=== PATIENT | male | born 1960 | race African-American/Black ===

== ENCOUNTER 2018-01-15 06:53 | Emergency (ER) | payer OTHER ==
[~2018-01-15] VITALS: Ht 188 cm; Wt 106.6 kg
[2018-01-15] MEDS ORDERED: ASPIRIN81 MG ORAL (06:59)
[2018-01-15] MEDS ORDERED: OMEPRAZOLE10 M1 ORAL (06:59)
[2018-01-15] MEDS ORDERED: METFORMIN HCL500 M1 ORAL (06:59)
[2018-01-15] MEDS ORDERED: AMBIEN10 M1 ORAL (06:59)
[2018-01-15] MEDS ORDERED: Ketorolac 30mg Inj IV ONE (07:00)
[2018-01-15] MEDS ORDERED: Morphine Sulfate 4mg/ml Inj IVP ONE (07:00)
--- NOTE | 2018-01-15 07:12 | Emergency Room Report ---
History of Present Illness General Chief Complaint: Lower Extremity Injury Source: Patient, EMS Present Illness HPI The patient is brought in by EMS after twisting his ankle trying to catch a bus this morning. He might have heard a crack. The pain is severe at this time radiating somewhat to his lower leg. Pain is constant and worse when the foot is dependent. He denies any numbness. He landed on his left side. He twisted his left wrist but states the pain is minimal. The pain in the ankle is 10/10, constant and aching with some sharpness. There is swelling laterally. The patient has a history of adult-onset diabetes however he stopped taking medication recently because his A1c was normal. The patient also has a history of acid reflux. No fevers, chills, chest pain, palpitations, nausea, vomiting, diarrhea, dysuria , abdominal pain, shortness of breath, depression, visual changes, headache. Coincidentally, he is scheduled to see his tele rn at the [place] soon. Allergies: Coded Allergies: No Known Allergies (Unverified , 01/15/18) Patient History Past Medical History: see triage record Social History: Reports: smoking Social History Narrative working for [employer] Reviewed Nursing Documentation: PMH: Agreed; PSxH: Agreed Nursing Documentation-PMH Hx Diabetes: Yes Hx Gastrointestinal Problems: Yes - acid reflux Review of Systems All Other Systems: negative except mentioned in HPI Physical Exam Vital Signs Date Time Temp Pulse Resp B/P (MAP) Pulse Ox O2 Delivery O2 Flow Rate FiO2 01/15/18 06:56 99.0 79 15 139/86 100 Room Air 99.0 Sp02 EP Interpretation: reviewed, normal General Appearance: well appearing, no apparent distress Head: normocephalic, atraumatic Eyes: bilateral eye normal inspection, bilateral eye PERRL ENT: hearing grossly normal, normal voice, moist mucus membranes Neck: full range of motion, supple Respiratory: lungs clear, no respiratory distress, speaking full sentences Cardiovascular #1: regular rate, rhythm Cardiovascular #2: 2+ dorsalis pedis (R) Gastrointestinal: normal inspection Musculoskeletal: back normal, digits/nails normal, no calf tenderness, swelling - and tenderness R ankle - more laterally. Laxity of lateral ligament. Medial maleolus and 5th MT not tender, other - knee without tenderness. L wrist minimal tenderness, ROM full Neurologic: alert, oriented x3, motor strength/tone normal, sensory intact, normal gait Psychiatric: mood/affect normal Skin: no rash Medical Decision Making Diagnostic Impression: Primary Impression: High ankle sprain of right lower extremity Qualified Codes: S93.431A - Sprain of tibiofibular ligament of right ankle, initial encounter ER Course Patient presents with right ankle pain. Differential includes fracture, sprain , contusion. Exam is consistent with fracture or high grade sprain. Evaluation will be with Accu-Chek, x-rays. The patient will need to be splinted. The patient will be treated for pain also. He will receive Toradol, morphine and Zofran. Xray with old injury, no acute fx. STS. Accucheck 141. Pain is much less and patient sleeping. Splint applied with excellent position. Neurovasc checked by me which is normal. Patient stable for outpatient observation and treatment. Other X-Ray Diagnostic Results Other X-Ray Diagnostic Results : X-Ray ordered: R ankle # of Views/Limited Vs Complete: 3 View Indication: Pain EP Interpretation: Yes Interpretation: no dislocation, no fractures - old, other - STS Last Vital Signs Date Time Temp Pulse Resp B/P (MAP) Pulse Ox O2 Delivery O2 Flow Rate FiO2 01/15/18 09:54 98.9 80 16 128/68 100 Room Air 99.0 Status: improved Disposition: HOME, SELF-CARE Condition: Improved Scripts Ibuprofen* (MOTRIN*) 600 Mg Tablet 600 MG ORAL Q6H PRN for For Pain, #16 TAB Prov: Souleymane Tam M.D. 01/15/18 Famotidine (PEPCID) 20 Mg Tablet 20 MG ORAL DAILY, #20 TAB 0 Refills Prov: Souleymane Tam M.D. 01/15/18 Acetaminophen (Tylenol) 325 Mg Tablet 650 MG ORAL Q6H PRN for Prn Pain/Headache/Temp > 101, #20 TAB 0 Refills Prov: Souleymane Tam M.D. 01/15/18 Tramadol Hcl* (ULTRAM*) 50 Mg Tablet 50 MG ORAL Q6H PRN for For Pain, #16 TAB 0 Refills Prov: Souleymane Tam M.D. 01/15/18 Souleymane Tam M.D. Jan 15, 2018 07:11
[2018-01-15] MEDS ORDERED: IBUPROFEN600 MG ORAL (08:11)
[2018-01-15] MEDS ORDERED: TYLENOL325 MG ORAL (08:11)
[2018-01-15] MEDS ORDERED: PEPCID20 MG ORAL (08:11)
[2018-01-15] MEDS ORDERED: TRAMADOL HCL50 MG ORAL (08:11)
[2018-01-15 09:54] VITALS: BP 128/68
--- NOTE | 2018-01-15 10:50 | Diagnostic Imaging Report ---
Indication: Right ankle pain, trauma Technique: 3 views of the right ankle Comparison: none Findings: There is a small calcaneal spur. No acute fractures. No dislocations. Soft tissue swelling overlies lateral malleolus Impression: Evidence of lateral soft tissue injury No acute bony trauma
== END 2018-01-15 09:58 | disposition home or self-care (01) ==
LOC: EDBD 06:53 → EMR 07:27
DX: S93.401A Sprain of unspecified ligament of right ankle, initial encounter (principal); X50.1XXA Overexertion from prolonged static or awkward postures, initial encounter; Y92.89 Other specified places as the place of occurrence of the external cause; K21.9 Gastro-esophageal reflux disease without esophagitis; E11.9 Type 2 diabetes mellitus without complications; M77.31 Calcaneal spur, right foot
CPT/HCPCS: 73610; 82962; 96374; 96375; 99284; J1885; J2270; J2405

== ENCOUNTER 2018-06-10 12:10 | Emergency (ER) | payer OTHER ==
[~2018-06-10] VITALS: Ht 190.5 cm; Wt 97.5 kg
[~2018-06-10 12:10] MED LIST: AMBIEN10 M1 ORAL; ASPIRIN81 MG ORAL; IBUPROFEN600 MG ORAL; METFORMIN HCL500 M1 ORAL; OMEPRAZOLE10 M1 ORAL; PEPCID20 MG ORAL; TRAMADOL HCL50 MG ORAL; TYLENOL325 MG ORAL
[2018-06-10 12:31] VITALS: BP 148/81
[2018-06-10] MEDS ORDERED: Norco 5mg/325mg tab ORAL ONE (13:15)
--- NOTE | 2018-06-10 14:23 | Emergency Room Report ---
History of Present Illness General Chief Complaint: Pain Source: Patient Present Illness HPI 57-year-old male presents emergency department complaining of 10 out of 10 in severity progressive pain to the left side of his jaw with swelling 2 days. Patient denies trauma or fall he denies fevers or chills. Patient reports tenderness to the inside of his mouth. Patient denies neck pain or stiffness. Patient reports pain is exacerbated with opening his mouth really wide. Denies fluctuation in swelling with meals. Denies tooth pain. denies swollen tender lymph nodes. pt. reports hx of lymphoma, denies night sweats or significant changes in weight. Allergies: Coded Allergies: No Known Allergies (Unverified , 01/15/18) Patient History Past Medical History: see triage record Past Surgical History: none Pertinent Family History: none Nursing Documentation-PMH Hx Diabetes: Yes Hx Cancer: Yes - Lymphoma 2002 Hx Gastrointestinal Problems: Yes - acid reflux Review of Systems All Other Systems: negative except mentioned in HPI Physical Exam Vital Signs Date Time Temp Pulse Resp B/P (MAP) Pulse Ox O2 Delivery O2 Flow Rate FiO2 06/10/18 12:18 98.5 79 20 148/81 96 Room Air 98.4 Sp02 EP Interpretation: reviewed, normal General Appearance: no apparent distress, alert, GCS 15, non-toxic Head: normocephalic, atraumatic Eyes: bilateral eye normal inspection, bilateral eye PERRL ENT: hearing grossly normal, normal pharynx, normal voice, TMs + canals normal , uvula midline, moist mucus membranes, other - Palpable well circumscribed soft tissue swelling/ over the mandible bone, no tenderness to percussion to the only near by tooth, gum disease noted. superficial ulcer where dentures are placed is noted. no palpable fluctuance, no LAD Neck: full range of motion Respiratory: lungs clear, normal breath sounds, speaking full sentences Cardiovascular #1: regular rate, rhythm Musculoskeletal: back normal, gait/station normal, normal range of motion, non- tender Neurologic: alert, oriented x3, responsive, motor strength/tone normal, sensory intact, speech normal, grossly normal Psychiatric: judgement/insight normal Skin: normal color, no rash, warm/dry, well hydrated Lymphatic: no adenopathy Medical Decision Making PA Attestation Dr. Ken is my supervising Physician whom patient management has been discussed with. Diagnostic Impression: Primary Impression: Aphthous ulcer of mouth Additional Impression: Jaw pain ER Course 57-year-old male presents emergency department complaining of 10 out of 10 in severity progressive pain to the left side of his jaw with swelling 2 days. Patient denies trauma or fall he denies fevers or chills. Patient reports tenderness to the inside of his mouth. Patient denies neck pain or stiffness. Patient reports pain is exacerbated with opening his mouth really wide. Denies fluctuation in swelling with meals. Denies tooth pain. denies swollen tender lymph nodes. pt. reports hx of lymphoma, denies night sweats or significant changes in weight. Denies recent URI. Ddx considered but are not limited to: dental abscess, MUSIC SPECIALIST, parotid gland obstruction/stone, parotitis, stomatitis, apthous ulcers, HSV just to name a few. Vital signs: are WNL, pt. is afebrile H&PE are most consistent with aphthous ulcer, no fluctuance palpated, palpable well circumscribed nodule, tender, no tenderness to percussion of the near by tooth. ORDERS: -Xray Jaw: no acute findings. - Steve Finley ( radiologist) called regarding questionable lucency / possible fracture, however no clinical correlation/ no trauma hx. -- Official radiology impression: "Patient is nearly edentulous. No acute fractures. No dislocations. No definite radiographic soft tissue abnormality to explain palpable findings " ED INTERVENTIONS: -Pain medication PO d/w pt. conservative treatment, and to follow up with a primary care provider preferable a Dentist as well. Pt given a list of primary care clinics for follow up. d/w pt. to return to the ED with worsening or new symptoms. DISCHARGE: At this time pt. is stable for d/c to home. Will provide printed patient care instructions, and any necessary prescriptions. Care plan and follow up instructions have been discussed with the patient prior to discharge. Other X-Ray Diagnostic Results Other X-Ray Diagnostic Results : X-Ray ordered: Mandible # of Views/Limited Vs Complete: 4 View Indication: Pain EP Interpretation: Yes PA Xray: Interpretation reviewed, by supervising MD, and agrees with findings. Interpretation: no dislocation, no soft tissue swelling, no fractures Impression: No acute disease Electronically Signed by: Masha Pepe PA-C Last Vital Signs Date Time Temp Pulse Resp B/P (MAP) Pulse Ox O2 Delivery O2 Flow Rate FiO2 06/10/18 13:15 98.4 06/10/18 12:31 79 20 148/81 96 Room Air Disposition: HOME, SELF-CARE Condition: Stable Scripts Benzocaine (ANBESOL) 9 Gm Gel..gram. 1 APPLIC MM TID, #9 GM Prov: Masha Pepe 06/10/18 Acetaminophen* (TYLENOL EXTRA STRENGTH*) 500 Mg Tablet 500 MG ORAL Q6H, #20 TAB 0 Refills Prov: Masha Pepe 06/10/18 Referrals: NON PHYSICIAN (PCP) Patient Instructions: Oral Ulcers Additional Instructions: Take medications as directed. Follow up with a Primary Care Provider in 3-5 days, even if your symptoms have resolved. --Please review list of primary care clinics, if you do not already have a primary care provider Return sooner to ED if new symptoms occur, or current symptoms become worse. - Please note that this Emergency Department Report was dictated using [employer] and benefits administrator technology software, occasionally this can lead to erroneous entry secondary to interpretation by the dictation equipment. Masha Pepe Jun 10, 2018 14:23
[2018-06-10] MEDS ORDERED: ANBESOL9 G1 MM (14:25)
[2018-06-10] MEDS ORDERED: TYLENOL EXTRA500 MG ORAL (14:25)
[2018-06-10 14:40] VITALS: BP 138/79
[2018-06-10 14:41] VITALS: BP 138/79
--- NOTE | 2018-06-10 15:02 | Diagnostic Imaging Report ---
. Indication: Left-sided jaw pain, history of remote mandible fracture, palpable nodule at mandibular angle Technique: 4 views of the mandible Comparison: none Findings: Patient is nearly edentulous. No acute fractures. No dislocations. No definite radiographic soft tissue abnormality to explain palpable findings Impression: No acute bony trauma No definite soft tissue abnormality to explain palpable findings. However, given limited sensitivity of plain radiographs for soft tissue abnormalities, CT with contrast should be considered if there is high clinical suspicion Findings discussed by phone with Masha Pepe in the emergency room at the time of interpretation
== END 2018-06-10 14:41 | disposition home or self-care (01) ==
LOC: EMR 12:25
DX: K12.0 Recurrent oral aphthae (principal); R68.84 Jaw pain; E11.9 Type 2 diabetes mellitus without complications; K21.9 Gastro-esophageal reflux disease without esophagitis; Z85.72 Personal history of non-Hodgkin lymphomas
CPT/HCPCS: 70110; 99283

== ENCOUNTER 2018-10-23 11:15 | Inpatient (IN) | payer OTHER ==
[~2018-10-23] VITALS: Ht 188 cm; Wt 102.5 kg
[~2018-10-23 11:15] MED LIST changes: +ANBESOL9 G1 MM; +TYLENOL EXTRA500 MG ORAL
[2018-10-23 11:23] VITALS: BP 148/86
--- NOTE | 2018-10-23 11:23 | NUR ---
ED Nurse Note: Vancenicolas walked into ED c/o of right foot swelling that started on friday, patient states thath e has no idea how it started. patient complains of 10/10 pain. patient is alert and oriented x4, ambulatory with a steady gait, VSS
[2018-10-23] MEDS ORDERED: HYDROcodone/Acetamin 5/325 tab ORAL ONE (11:45)
[2018-10-23] MEDS ORDERED: Ketorolac 30mg Inj IV ONE (11:45)
--- NOTE | 2018-10-23 12:00 | NUR ---
ED Nurse Note: Zarephath dropped on the the floor, wasted and get a new dose out.
[2018-10-23] MEDS ORDERED: HYDROcodone/Acetamin 5/325 tab ONE (12:12)
[2018-10-23 12:50] LABS: BASOPHILS % (AUTO) 1.4 % (0.0-2.0); EOSINOPHILS % (AUTO) 1.3 % (0.0-3.0); HEMATOCRIT 43.1 % (42.0-52.0); HEMOGLOBIN 14.3 G/DL (14.2-18.0); LYMPHOCYTES % (AUTO) 23.2 % (20.0-45.0); MEAN CORPUSCULAR VOLUME 88 FL (80-99); MONOCYTES % (AUTO) 9.1 % (1.0-10.0); PLATELET COUNT 311 K/UL (150-450); RED BLOOD COUNT 4.88 M/UL (4.70-6.10); RED CELL DISTRIBUTION WIDTH 12.5 % (11.6-14.8); WHITE BLOOD COUNT 14.7 K/UL (4.8-10.8)
[2018-10-23 12:54] LABS: ANION GAP 12 mmol/L (5-15); BLOOD UREA NITROGEN 11 mg/dL (7-18); CALCIUM 8.5 MG/DL (8.5-10.1); CARBON DIOXIDE 27 MMOL/L (21-32); CHLORIDE 103 MMOL/L (98-107); POTASSIUM 4.1 MMOL/L (3.5-5.1); SODIUM 141 MMOL/L (136-145)
[2018-10-23 12:56] LABS: ALANINE AMINOTRANSFERASE 15 U/L (12-78); ALBUMIN 3.6 G/DL (3.4-5.0); ALKALINE PHOSPHATASE 75 U/L (46-116); ASPARTATE AMINO TRANSFERASE 12 U/L (15-37); BILIRUBIN,TOTAL 0.4 MG/DL (0.2-1.0)
[2018-10-23] MEDS ORDERED: Bactrim-DS 1 tab ORAL ONE (13:15)
[2018-10-23] MEDS ORDERED: Vancomycin 1 GM in D5W 275 ML IVPB ONE (13:15)
[2018-10-23 13:49] VITALS: BP 147/95
[2018-10-23 13:50] LABS: APPEARANCE,URINE CLEAR; BILIRUBIN, URINE NEGATIVE (NEGATIVE); GLUCOSE, URINE (UA) NEGATIVE (NEGATIVE); KETONES,URINE NEGATIVE (NEGATIVE); LEUKOCYTE ESTERASE ,URINE 1+ (NEGATIVE); NITRITE,URINE NEGATIVE (NEGATIVE); PH,URINE 7 (4.5-8.0); PROTEIN,URINE NEGATIVE (NEGATIVE); UROBILINOGEN,URINE NORMAL MG/DL (0.0-1.0)
[2018-10-23 13:53] LABS: COLOR,URINE YELLOW
--- NOTE | 2018-10-23 14:25 | NUR ---
ED Nurse Note: Sanwich and juice provided, confirmed with ERMD that its ok to give. Pt tolerates well.
--- NOTE | 2018-10-23 14:45 | Diagnostic Imaging Report ---
Indication: Right ankle pain for 2 to 3 days Technique: 3 views of the right ankle Comparison: For 2017 Findings: There is a small calcaneal spur. No acute fractures. No dislocations. The joint spaces are preserved. When compared to prior exam, previously demonstrated lateral soft tissue swelling is no longer evident Impression: No acute process
[2018-10-23] MEDS ORDERED: Piperacillin/Tazobactam 3.375 GM in NS 110 ML IVPB ONE (15:30)
--- NOTE | 2018-10-23 15:32 | Emergency Room Report ---
History of Present Illness General Chief Complaint: Skin Rash/Abscess Source: Patient Present Illness HPI Patient presents with 3 days of increased right ankle pain. Was worried that he has gout. The ankle is swollen and he is unable to weight-bear. Any movement causes extreme pain. There is no calf pain or edema. He has never had this problem before. He has skin breakdown on the bottom of his foot. There is no fever or chills. The joint has felt hot to the patient. He is not taking any pain medication for this. No sore throat, cough, chest pain, nausea, vomiting, diarrhea, dysuria. Patient was sent to [place] with assessment of homeless vets. He is exposed to bedbugs. There is no family history of gout. History of lymphoma. History of hypertension. He states that on one hyper antihypertensive he had some edema bilaterally but this is different. The patient sprained his ankle in the recent past but there was no trauma recently. 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 Reviewed Nursing Documentation: PMH: Agreed; PSxH: Agreed Nursing Documentation-PMH Past Medical History: No History, Except For Hx Diabetes: Yes Hx Cancer: Yes - Lymphoma 2002 Hx Gastrointestinal Problems: Yes - acid reflux Review of Systems All Other Systems: negative except mentioned in HPI Physical Exam Vital Signs Date Time Temp Pulse Resp B/P (MAP) Pulse Ox O2 Delivery O2 Flow Rate FiO2 10/23/18 11:17 98.4 77 18 148/86 95 Room Air Sp02 EP Interpretation: reviewed, normal General Appearance: well appearing, no apparent distress, GCS 15 Head: normocephalic Eyes: bilateral eye normal inspection, bilateral eye PERRL ENT: moist mucus membranes - Poor dentition Neck: supple Respiratory: lungs clear, normal breath sounds Cardiovascular #1: regular rate, rhythm Cardiovascular #2: 2+ radial (R), 2+ dorsalis pedis (R) Gastrointestinal: normal inspection, normal bowel sounds, non tender, no mass, non-distended Musculoskeletal: back normal, swelling, tender - With ankle effusion right, palpation causes pain. Ligaments are stable. Neurologic: alert, oriented x3, grossly normal Psychiatric: mood/affect normal Skin: warm/dry, other - Ankle is not erythematous however the joint feels warm to touch. There is also a tinea pedis with skin breakdown increased cornified skin Medical Decision Making Diagnostic Impression: Primary Impression: Septic joint right ankle Additional Impression: Effusion, right ankle ER Course Patient presents with right ankle pain with warmth and effusion. There is no history of trauma. Differential includes gout, pseudogout, septic joint amongst others. Evaluation will be with labs and x-ray. Patient will be treated with IV Toradol although he states he cannot tolerate nonsteroidal anti- inflammatory medication 1 dose is felt not to be a problem. Labs significant for elevated white count. C-reactive protein is elevated. Uric acid normal. Ankle x-ray without fracture or bony abnormality however there is evidence of effusion. Antibiotics are begun. Discussed with Dr. Aguilar at [facility] who refuses patient unless ankle has been tapped. Admit med Dr. Miranda. Patient discussed with Dr. Menjivar. The patient is improved. He was examined by Dr. Perez feels this may not be a septic joint as it has improved dramatically. He is considering the possibility of pseudogout. The patient is still admitted to the hospital for evaluation of blood cultures and continued antibiotics. Consideration for treatment with colchicine. Of note the patient went outside to smoke. He was offered a nicotine patch which he declined. Consideration for treatment with colchicine Laboratory Tests Test 10/23/18 12:20 10/23/18 13:35 White Blood Count 14.7 K/UL (4.8-10.8) H Red Blood Count 4.88 M/UL (4.70-6.10) Hemoglobin 14.3 G/DL (14.2-18.0) Hematocrit 43.1 % (42.0-52.0) Mean Corpuscular Volume 88 FL (80-99) Mean Corpuscular Hemoglobin 29.3 PG (27.0-31.0) Mean Corpuscular Hemoglobin Concent 33.2 G/DL (32.0-36.0) Red Cell Distribution Width 12.5 % (11.6-14.8) Platelet Count 311 K/UL (150-450) Mean Platelet Volume 8.4 FL (6.5-10.1) Neutrophils (%) (Auto) 65.0 % (45.0-75.0) Lymphocytes (%) (Auto) 23.2 % (20.0-45.0) Monocytes (%) (Auto) 9.1 % (1.0-10.0) Eosinophils (%) (Auto) 1.3 % (0.0-3.0) Basophils (%) (Auto) 1.4 % (0.0-2.0) Erythrocyte Sedimentation Rate 6 MM/HR (0-20) Sodium Level 141 MMOL/L (136-145) Potassium Level 4.1 MMOL/L (3.5-5.1) Chloride Level 103 MMOL/L (98-107) Carbon Dioxide Level 27 MMOL/L (21-32) Anion Gap 12 mmol/L (5-15) Blood Urea Nitrogen 11 mg/dL (7-18) Creatinine 1.0 MG/DL (0.55-1.30) Estimate Glomerular Filtration Rate > 60 mL/min (>60) Glucose Level 126 MG/DL (74-106) H Uric Acid 4.6 MG/DL (2.6-7.2) Calcium Level 8.5 MG/DL (8.5-10.1) Total Bilirubin 0.4 MG/DL (0.2-1.0) Aspartate Amino Transferase (AST) 12 U/L (15-37) L Alanine Aminotransferase (ALT) 15 U/L (12-78) Alkaline Phosphatase 75 U/L (46-116) C-Reactive Protein, Quantitative 1.0 mg/dL (0.00-0.90) H Total Protein 7.1 G/DL (6.4-8.2) Albumin 3.6 G/DL (3.4-5.0) Globulin 3.5 g/dL Albumin/Globulin Ratio 1.0 (1.0-2.7) Urine Color Yellow Urine Appearance Clear Urine pH 7 (4.5-8.0) Urine Specific [place] 1.010 (1.005-1.035) Urine Protein Negative (NEGATIVE) Urine Glucose (UA) Negative (NEGATIVE) Urine Ketones Negative (NEGATIVE) Urine Blood 1+ (NEGATIVE) H Urine Nitrite Negative (NEGATIVE) Urine Bilirubin Negative (NEGATIVE) Urine Urobilinogen Normal MG/DL (0.0-1.0) Urine Leukocyte Esterase 1+ (NEGATIVE) H Urine RBC 2-4 /HPF (0 - 0) H Urine WBC 0-2 /HPF (0 - 0) Urine Squamous Epithelial Cells None /LPF (NONE/OCC) Urine Bacteria None /HPF (NONE) Urine Opiates Screen Negative (NEGATIVE) Urine Barbiturates Screen Negative (NEGATIVE) Phencyclidine (PCP) Screen Negative (NEGATIVE) Urine Amphetamines Screen Negative (NEGATIVE) Urine Benzodiazepines Screen Negative (NEGATIVE) Urine Cocaine Screen Negative (NEGATIVE) Urine Marijuana (THC) Screen Negative (NEGATIVE) Other X-Ray Diagnostic Results Other X-Ray Diagnostic Results : X-Ray ordered: Right ankle # of Views/Limited Vs Complete: 3 View Indication: Pain Interpretation: no dislocation, no soft tissue swelling, no fractures, other - Effusion Impression: Other Electronically Signed by: Electronically signed by Souleymane Tam MD Last Vital Signs Date Time Temp Pulse Resp B/P (MAP) Pulse Ox O2 Delivery O2 Flow Rate FiO2 10/23/18 18:39 Room Air 10/23/18 18:01 98.6 72 21 147/94 (111) 98 Status: improved Disposition: ADMITTED INPATIENT Condition: Serious Referrals: NON PHYSICIAN (PCP) Souleymane Tam MD Oct 23, 2018 15:32
--- NOTE | 2018-10-23 15:42 | NUR ---
ED Nurse Note: Pt sleeping in room comfortably, no sign of acute distress.
[2018-10-23 15:43] VITALS: BP 141/98
[2018-10-23 16:01] VITALS: BP 142/89
--- NOTE | 2018-10-23 16:41 | NUR ---
ED Nurse Note: Reprot given to MAKI Mendez at ext [phone]. Pt to be transfered to room 317 per protocol with all belongings.
[2018-10-23 18:01] VITALS: BP 147/94
--- NOTE | 2018-10-23 18:05 | NUR ---
NURSE NOTES: received patient A/A/Ox4, ambulatory. personal belongings noted. placed a call to Dr. Miranda for admission orders and spoke with Renay @ the office. admission profile done. Refused both vaccines Influenza and PNA. VSS. medrec done. skin is intact. RLE is swelling nonpitting edema. bed is in lowest position and siderails are up x2, call light is within reach. awaiting for a callback. will cont to monitor.
--- NOTE | 2018-10-23 19:07 | NUR ---
HAND-OFF: Report given to Marisa.
--- NOTE | 2018-10-23 19:30 | NUR ---
NURSE NOTES: Received patient in bed. On RA, no SOB, no acute distress. L AC IV intact, patent. Waiting for call back from MD for admission order. In stable condition. Skin intact on R foot/ankle area. Bed in lowest position, locked, alarms on. Call light in reach.
[2018-10-23 20:00] VITALS: BP 155/87
--- NOTE | 2018-10-23 21:45 | Consultation ---
DATE OF CONSULTATION: 10/23/2018 CHIEF COMPLAINT: Right ankle pain. HISTORY OF PRESENT ILLNESS: The patient is a 58-year-old gentleman who presented with complaints of right ankle pain. Orthopedic consultation was obtained given that there was concern for septic joint. PAST MEDICAL HISTORY: Reviewed per intake chart. PAST SURGICAL HISTORY: Reviewed per intake chart. MEDICATIONS: Reviewed per intake chart. PHYSICAL EXAMINATION: The patient actively flexes and extends his ankle by approximately 20 degrees with 5 degrees inversion and eversion. Posterior calf is soft. There is pain mostly around the distal third of the tibia. ASSESSMENT: 1. Right ankle fusion. 2. Right ankle pain. DISCUSSION: Possible septic joint. He is actually actively moving his ankle pretty comfortably. He may have a reactive effusion in the ankle or may be a primary pseudogout or gout. At this point, what I recommend is just to monitor him and check uric acid and then based on his clinical symptoms, consider anti-inflammatories. I do not think he has a septic joint clinically, and therefore I would hold off on antibiotics going forward. Breezy Perez M.D. DR: ELENI JOB#: [id number] CC: SEAN
--- NOTE | 2018-10-23 21:45 | NUR ---
NURSE NOTES: Received admission orders from Dr Jennings, carried out. made aware of high BP at 155/87 without hx of HTN med. No new order, will cont monitoring BP closely.
[2018-10-23] MEDS: Piperacillin/Tazobactam 3.375 GM in NS 110 ML IVPB SCH (23:17)
[2018-10-23] MEDS: Vancomycin 1gm/D5W 275ml IVPB SCH ×2 (23:18)
[2018-10-24] VITALS: BP 151/77
[2018-10-24] MEDS: Zolpidem 5mg tab ORAL PRN (02:48)
[2018-10-24] MEDS: HYDROcodone/Acetamin 5/325 tab ORAL PRN ×2 (02:48→15:28)
[2018-10-24 04:00] VITALS: BP 156/92
[2018-10-24] MEDS: Piperacillin/Tazobactam 3.375 GM in NS 110 ML IVPB SCH ×3 (06:09→21:35)
[2018-10-24 07:24] LABS: BASOPHILS % (AUTO) 0.8 % (0.0-2.0); EOSINOPHILS % (AUTO) 1.6 % (0.0-3.0); HEMATOCRIT 40.1 % (42.0-52.0); HEMOGLOBIN 14.1 G/DL (14.2-18.0); LYMPHOCYTES % (AUTO) 23.5 % (20.0-45.0); MEAN CORPUSCULAR VOLUME 88 FL (80-99); MONOCYTES % (AUTO) 8.9 % (1.0-10.0); NEUTROPHILS % (AUTO) 65.3 % (45.0-75.0); PLATELET COUNT 293 K/UL (150-450); RED BLOOD COUNT 4.59 M/UL (4.70-6.10); RED CELL DISTRIBUTION WIDTH 12.8 % (11.6-14.8); WHITE BLOOD COUNT 13.5 K/UL (4.8-10.8)
[2018-10-24 07:26] LABS: ANION GAP 9 mmol/L (5-15); BLOOD UREA NITROGEN 11 mg/dL (7-18); CALCIUM 8.6 MG/DL (8.5-10.1); CARBON DIOXIDE 27 MMOL/L (21-32); CHLORIDE 105 MMOL/L (98-107); CREATININE 1.1 MG/DL (0.55-1.30); POTASSIUM 4.2 MMOL/L (3.5-5.1); SODIUM 140 MMOL/L (136-145)
--- NOTE | 2018-10-24 07:43 | NUR ---
HAND-OFF: Report given to Obed GAMBINO.
--- NOTE | 2018-10-24 07:58 | NUR ---
NURSE NOTES: Pt in bed a/o x 4 in no acute distress having breakfast. Pt denies pain at this time. Abx running as ordered. Patent iv's to bilateral arms. Right bowman warmer than left, no edema noted on right foot. Pt left in bed in low position, call light within reach, skid socks on, bed locked.
[2018-10-24 08:00] VITALS: BP 141/90
[2018-10-24] MEDS: metFORMIN 500mg tab ORAL SCH ×2 (08:22→17:32)
[2018-10-24] MEDS: Aspirin Baby 81mg ORAL SCH (08:24)
--- NOTE | 2018-10-24 08:33 | NUR ---
CHARGE NURSE NOTE: Pi is noncompliant, does not want to follow hospital protocol, going smoke without permission. Spoke with the patient, he still will continue to smoke. and notified.
--- NOTE | 2018-10-24 08:38 | NUR ---
NURSE NOTES: Pt taken down to surgery, doctor came and talked to the patient at the bedside. Pt left in no acute distress. Addendum: 10/24/18 at 0839 by Barbie Clay RN wrong pt note, disregard
[2018-10-24] MEDS ORDERED: ORAJEL 20% ORO SCH (09:00)
[2018-10-24 12:00] VITALS: BP 154/92
--- NOTE | 2018-10-24 12:02 | History & Physical ---
History of Present Illness General Date patient seen: Oct 24, 2018 Time patient seen: 11:58 Reason for Hospitalization: Skin Rash/Abscess Present Illness HPI 58 yo male with h/o arthritis presents with severe right ankle pain. States pain started 2-3 days ago, becoming worse, with redness and swelling. Denies fevers/chills. Admits to cough. Denies chest pain or sob. social hx reviewed: smokes half ppd, denies alcohol use, denies drug use past fam hx reviewed: denies any past sig fam hx that he is aware of code status reviewed: FULL CODE. Allergies: Coded Allergies: IBUPROFEN (Verified Allergy, Unknown, 10/23/18) Medication History Scheduled Acetaminophen* (Tylenol Extra Strength*), 500 MG ORAL Q6H Aspirin* (Aspirin*), 81 MG ORAL DAILY, (Reported) Benzocaine (Anbesol), 1 APPLIC MM TID Famotidine (Pepcid), 20 MG ORAL DAILY Metformin Hcl* (Metformin Hcl*), 500 MG ORAL TWICE A DAY, (Reported) Omeprazole (Omeprazole), 10 MG ORAL DAILY, (Reported) Scheduled PRN Acetaminophen (Tylenol), 650 MG ORAL Q6H PRN for Prn Pain/Headache/Temp > 101 Ibuprofen* (Motrin*), 600 MG ORAL Q6H PRN for For Pain Tramadol Hcl* (Ultram*), 50 MG ORAL Q6H PRN for For Pain Zolpidem Tartrate* (Ambien*), 10 MG ORAL HS PRN for Insomnia, (Reported) Patient History Healthcare decision maker Resuscitation status Full Code Advanced Directive on File Review of Systems Review of Symptoms General ROS: no weight loss or fever Psychological ROS: no depression or mood changes, no memory loss Ophthalmic ROS: no visual changes or eye irritation ENT ROS: no nasal congestion, hearing loss, dizziness Allergy and Immunology ROS: no allergic symptoms or urticaria Hematological and Lymphatic ROS: no swollen glands, unusual bleeding or bruising Endocrine ROS: no polyuria, polydipsia, weight changes, temperature intolerance Respiratory ROS: no cough, shortness of breath, or wheezing Cardiovascular ROS: no chest pain or dyspnea on exertion Gastrointestinal ROS: denies abdominal pain, bright red blood in stool. Musculoskeletal ROS: no myalgias or arthralgias Neurological ROS: no TIA or stroke symptoms Dermatological ROS: no new or changing skin lesions, rashes or pruritis Physical Exam Physical Exam General appearance: alert, cooperative, no distress, appears stated age Head: Normocephalic, without obvious abnormality, atraumatic Eyes: conjunctivae/corneas clear. PERRL, EOM's intact. Fundi benign Throat: Lips, mucosa, and tongue normal. Teeth and gums normal Neck: supple, symmetrical, trachea midline, no adenopathy, thyroid: not enlarged, symmetric, no tenderness/mass/nodules, no carotid bruit and no JVD Lungs: clear to auscultation bilaterally Heart: regular rate and rhythm, S1, S2 normal, no murmur, click, rub or gallop Abdomen: soft, non-tender. Bowel sounds normal. No masses, no organomegaly Extremities: right ankle mild ttp with erythema, mild swelling noted, no abrasions Pulses: 2+ and symmetric Skin: erythema around right ankle Neurologic: Grossly normal Last 24 Hour Vital Signs Date Time Temp Pulse Resp B/P (MAP) Pulse Ox O2 Delivery O2 Flow Rate FiO2 10/24/18 09:00 Room Air 10/24/18 08:00 98.6 70 18 141/90 (107) 99 10/24/18 04:00 98.1 73 19 156/92 (113) 96 10/24/18 00:00 97.6 76 20 151/77 (101) 95 10/23/18 21:00 Room Air 10/23/18 20:00 98.3 84 20 155/87 (109) 100 10/23/18 18:39 Room Air 10/23/18 18:01 98.6 72 21 147/94 (111) 98 10/23/18 16:43 98.4 68 20 142/89 99 Room Air 10/23/18 16:01 98.4 68 20 142/89 99 Room Air 10/23/18 15:43 98.4 62 21 141/98 99 Room Air 10/23/18 13:49 98.4 67 20 147/95 96 Room Air 10/23/18 12:25 98.4 10/23/18 12:25 98.4 Intake and Output 10/23/18 10/24/18 18:59 06:59 Intake Total 385 ml 1025.000 ml Balance 385 ml 1025.000 ml Intake Oral 0 ml 640 ml IV Total 385 ml 385.000 ml # Voids 3 Laboratory Tests Test 10/23/18 12:20 10/23/18 13:35 10/24/18 05:57 White Blood Count 14.7 K/UL (4.8-10.8) H 13.5 K/UL (4.8-10.8) H Red Blood Count 4.88 M/UL (4.70-6.10) 4.59 M/UL (4.70-6.10) L Hemoglobin 14.3 G/DL (14.2-18.0) 14.1 G/DL (14.2-18.0) L Hematocrit 43.1 % (42.0-52.0) 40.1 % (42.0-52.0) L Mean Corpuscular Volume 88 FL (80-99) 88 FL (80-99) Mean Corpuscular Hemoglobin 29.3 PG (27.0-31.0) 30.7 PG (27.0-31.0) Mean Corpuscular Hemoglobin Concent 33.2 G/DL (32.0-36.0) 35.1 G/DL (32.0-36.0) Red Cell Distribution Width 12.5 % (11.6-14.8) 12.8 % (11.6-14.8) Platelet Count 311 K/UL (150-450) 293 K/UL (150-450) Mean Platelet Volume 8.4 FL (6.5-10.1) 7.9 FL (6.5-10.1) Neutrophils (%) (Auto) 65.0 % (45.0-75.0) 65.3 % (45.0-75.0) Lymphocytes (%) (Auto) 23.2 % (20.0-45.0) 23.5 % (20.0-45.0) Monocytes (%) (Auto) 9.1 % (1.0-10.0) 8.9 % (1.0-10.0) Eosinophils (%) (Auto) 1.3 % (0.0-3.0) 1.6 % (0.0-3.0) Basophils (%) (Auto) 1.4 % (0.0-2.0) 0.8 % (0.0-2.0) Erythrocyte Sedimentation Rate 6 MM/HR (0-20) Sodium Level 141 MMOL/L (136-145) 140 MMOL/L (136-145) Potassium Level 4.1 MMOL/L (3.5-5.1) 4.2 MMOL/L (3.5-5.1) Chloride Level 103 MMOL/L (98-107) 105 MMOL/L (98-107) Carbon Dioxide Level 27 MMOL/L (21-32) 27 MMOL/L (21-32) Anion Gap 12 mmol/L (5-15) 9 mmol/L (5-15) Blood Urea Nitrogen 11 mg/dL (7-18) 11 mg/dL (7-18) Creatinine 1.0 MG/DL (0.55-1.30) 1.1 MG/DL (0.55-1.30) Estimat Glomerular Filtration Rate > 60 mL/min (>60) > 60 mL/min (>60) Glucose Level 126 MG/DL (74-106) H 145 MG/DL (74-106) H Uric Acid 4.6 MG/DL (2.6-7.2) Calcium Level 8.5 MG/DL (8.5-10.1) 8.6 MG/DL (8.5-10.1) Total Bilirubin 0.4 MG/DL (0.2-1.0) Aspartate Amino Transf (AST/SGOT) 12 U/L (15-37) L Alanine Aminotransferase (ALT/SGPT) 15 U/L (12-78) Alkaline Phosphatase 75 U/L (46-116) C-Reactive Protein, Quantitative 1.0 mg/dL (0.00-0.90) H Total Protein 7.1 G/DL (6.4-8.2) Albumin 3.6 G/DL (3.4-5.0) Globulin 3.5 g/dL Albumin/Globulin Ratio 1.0 (1.0-2.7) Urine Color Yellow Urine Appearance Clear Urine pH 7 (4.5-8.0) Urine Specific [place] 1.010 (1.005-1.035) Urine Protein Negative (NEGATIVE) Urine Glucose (UA) Negative (NEGATIVE) Urine Ketones Negative (NEGATIVE) Urine Blood 1+ (NEGATIVE) H Urine Nitrite Negative (NEGATIVE) Urine Bilirubin Negative (NEGATIVE) Urine Urobilinogen Normal MG/DL (0.0-1.0) Urine Leukocyte Esterase 1+ (NEGATIVE) H Urine RBC 2-4 /HPF (0 - 0) H Urine WBC 0-2 /HPF (0 - 0) Urine Squamous Epithelial Cells None /LPF (NONE/OCC) Urine Bacteria None /HPF (NONE) Urine Opiates Screen Negative (NEGATIVE) Urine Barbiturates Screen Negative (NEGATIVE) Phencyclidine (PCP) Screen Negative (NEGATIVE) Urine Amphetamines Screen Negative (NEGATIVE) Urine Benzodiazepines Screen Negative (NEGATIVE) Urine Cocaine Screen Negative (NEGATIVE) Urine Marijuana (THC) Screen Negative (NEGATIVE) Height (Feet): 6 Height (Inches): 2.00 Weight (Pounds): 226 Medications Current Medications Medications (Trade) Dose Ordered Sig/Wil Route PRN Reason Start Time Stop Time Status Last Admin Dose Admin Acetaminophen/ Hydrocodone Bitart ([place] 5/325) 1 tab Q4H PRN ORAL Moderate Pain (Pain Scale 4-6) 10/23/18 22:00 10/30/18 21:59 10/24/18 02:48 Aspirin (ASA) 81 mg DAILY ORAL 10/24/18 09:00 11/23/18 08:59 10/24/18 08:24 Metformin HCl (Glucophage) 500 mg TWICE A DAY ORAL 10/24/18 09:00 11/23/18 08:59 10/24/18 08:22 Pantoprazole (Protonix) 40 mg ACBREAKFAST ORAL 10/24/18 06:30 11/23/18 06:29 10/24/18 06:10 Piperacillin Sod/ Tazobactam Sod 3.375 gm/Sodium Chloride 110 ml @ 27.5 mls/hr Q8HR IVPB 10/23/18 23:00 10/30/18 22:59 10/24/18 06:09 Vancomycin HCl (Vanco rx to dose) 1 ea DAILY PRN MISC Per rx protocol 10/23/18 21:30 11/22/18 21:29 Vancomycin HCl 1 gm/Dextrose 275 ml @ 183.708 mls/hr Q12H IVPB 10/24/18 00:00 10/29/18 00:00 10/23/18 23:18 Zolpidem Tartrate (Ambien) 10 mg BEDTIME PRN ORAL Insomnia 10/23/18 22:00 10/30/18 21:59 10/24/18 02:48 Assessment/Plan Status: stable Assessment/Plan Sepsis Septic Joint Right Ankle Pain - vanco/zosyn - bcx x 2 - ortho consulted - uric acid sent - ID consult Arthritis - pain control - uric acid ppx: scd diet: regular Code Status: Full Hospital Classification Declaration: Based on this initial evaluation, and depending on the patient's clinical course, I anticipate that this patient will require hospitalization for 2-3 days for sepsis eval and close respiratory/ hemodynamic monitoring. Disposition: Once the patient is stable to leave the hospital, I anticipate the patient will likely be discharged to the following environment: home I spent 75 minutes on this patient's case, and 44 minutes were dedicated to counseling and/or care coordination. Discussed with patient/family, nursing staff, SW/CM, and consultants regarding clinical status, treatment course, and disposition planning. Time of note may not reflect time of encounter. [facility] Hospital declaration x INPATIENT level of care is warranted for this patient MIPS (Merit-based Incentive Payment System) Applicable CPT: 06547 CHECK ALL THAT ARE MET: Measure #5 (CHF): All ages. Prescribe NIURKA/ARB upon discharge for patients with left ventricular systolic dysfunction. If not, the reason is clearly documented in the medical chart. Measure #8 (CHF): All ages. Prescribe a beta saniya upon discharge for patients with left ventricular systolic dysfunction. If not, the reason is clearly documented in the medical chart. x Measure #47 Advance care plan or surrogate decision maker documented in the medical record. x Measure #130 The provider has documented, updated, or reviewed the patients current medication list and has documented it in the patients note. Measure #374 (All): Send report to referring provider. Measure #407(Sepsis due to MSSA bacteremia): Age 18+ Patient treated with a beta-lactam antibiotic (Nafcillin, Oxacillin or Cefazolin) as definitive therapy. MEDICAL COMPLEXITY High complexity medical decision making (need 2/3 categories) Problem - need 4 points x Acute/new problem with new plan for workup (4 points, 1 max) Acute/new problem without additional workup (3 points, 1 max) Unstable chronic problem actively being managed (2 point each, 2 max) x Stable chronic problem actively being managed (1 point each, 2 max) Self-limited/transient process (constipation, muscle ache, etc) (1 point each , 2 max) Data - need 4 points x Reviewed labs/imaging studies (1 points, 2 max) x Independent review of imaging (EKG, xrays, etc) (2 points, 2 max) x Discussed case with consult/other MD/RN (2 points, 2 max) High Risk - qualify if have one of the following: x Severe exacerbation of acute problem, acute mental status change, IV narcotics, monitoring drug levels (vancomycin, INR, tacrolimus etc) Pranay Menjivar MD Oct 24, 2018 12:02
--- NOTE | 2018-10-24 12:08 | General Progress Note ---
Advance Care Planning Advance Care Planning Advance Care Planning [facility] An independent Hospitalist group, where every patient is our [facility] Internal Medicine Hospitalist Advanced Care Planning Note Please contact us at Date of Discussion: A [id number] discussion with the patient regarding the patient's advanced care planning took place during this hospitalization on the above date. The discussion included the explanation and discussion of advance directives and associated forms/documents, as well as the patient's current code status. We also discussed at length the patient's medical conditions (both acute and chronic), general prognosis, treatment options, and goals of care. The following summarizes the discussion: Advance Care Planning/Goals of Care: - Will attempt to fill out an AD and/or POLST with the patient prior to discharge, if not already completed - Continue current evaluation and management of any acute and chronic medical issues - Will continue to support the patient/family - Will continue to discuss both short- and long-term goals of care DPOA-HC/Surrogate Decision Maker: None currently appointed Code Status: Full Code Advanced Care Planning Forms/Documents Completed: Deferred until later encounter/visit A total of 35 minutes was spent on this discussion, including counseling, answering questions, and completing, if any, pertinent advanced care planning forms/documents. Time of note may not reflect time of encounter. Pranay Menjivar MD Oct 24, 2018 12:08
[2018-10-24] MEDS: Vancomycin 1gm/D5W 275ml IVPB SCH ×2 (12:34)
--- NOTE | 2018-10-24 12:44 | Infectious Diseases Prog Note ---
Assessment/Plan Assessment/Plan Full consult dictated: A) 1) possible sepsis, leukocytosis, sirs 2) right ankle pain and swelling - ROM is good and not c/w septic arthritis 3) ? right ankle cellulitis however only mild warmth and redness 4) dm, hx lymphoma, gerd, no htn but bp recently high per patient 5) allergies - ibuprofen, sh - + smoking, fh-nc, mar noted, d/w RN 6) notes and records reviewed P) 1) currently on vancomycin and zosyn 2) f/u on blood cultures and chest x-ray, urinalysis with 0-2 wbc 3) monitor labs 4) orders entered 5) thank you Subjective Allergies: Coded Allergies: IBUPROFEN (Verified Allergy, Unknown, 10/23/18) Objective Vital Signs Last 24 Hour Vital Signs Date Time Temp Pulse Resp B/P (MAP) Pulse Ox O2 Delivery O2 Flow Rate FiO2 10/24/18 09:00 Room Air 10/24/18 08:00 98.6 70 18 141/90 (107) 99 10/24/18 04:00 98.1 73 19 156/92 (113) 96 10/24/18 00:00 97.6 76 20 151/77 (101) 95 10/23/18 21:00 Room Air 10/23/18 20:00 98.3 84 20 155/87 (109) 100 10/23/18 18:39 Room Air 10/23/18 18:01 98.6 72 21 147/94 (111) 98 10/23/18 16:43 98.4 68 20 142/89 99 Room Air 10/23/18 16:01 98.4 68 20 142/89 99 Room Air 10/23/18 15:43 98.4 62 21 141/98 99 Room Air 10/23/18 13:49 98.4 67 20 147/95 96 Room Air Height (Feet): 6 Height (Inches): 2.00 Weight (Pounds): 226 Laboratory Tests Test 10/23/18 13:35 10/24/18 05:57 Urine Color Yellow Urine Appearance Clear Urine pH 7 (4.5-8.0) Urine Specific [place] 1.010 (1.005-1.035) Urine Protein Negative (NEGATIVE) Urine Glucose (UA) Negative (NEGATIVE) Urine Ketones Negative (NEGATIVE) Urine Blood 1+ (NEGATIVE) H Urine Nitrite Negative (NEGATIVE) Urine Bilirubin Negative (NEGATIVE) Urine Urobilinogen Normal MG/DL (0.0-1.0) Urine Leukocyte Esterase 1+ (NEGATIVE) H Urine RBC 2-4 /HPF (0 - 0) H Urine WBC 0-2 /HPF (0 - 0) Urine Squamous Epithelial Cells None /LPF (NONE/OCC) Urine Bacteria None /HPF (NONE) Urine Opiates Screen Negative (NEGATIVE) Urine Barbiturates Screen Negative (NEGATIVE) Phencyclidine (PCP) Screen Negative (NEGATIVE) Urine Amphetamines Screen Negative (NEGATIVE) Urine Benzodiazepines Screen Negative (NEGATIVE) Urine Cocaine Screen Negative (NEGATIVE) Urine Marijuana (THC) Screen Negative (NEGATIVE) White Blood Count 13.5 K/UL (4.8-10.8) H Red Blood Count 4.59 M/UL (4.70-6.10) L Hemoglobin 14.1 G/DL (14.2-18.0) L Hematocrit 40.1 % (42.0-52.0) L Mean Corpuscular Volume 88 FL (80-99) Mean Corpuscular Hemoglobin 30.7 PG (27.0-31.0) Mean Corpuscular Hemoglobin Concent 35.1 G/DL (32.0-36.0) Red Cell Distribution Width 12.8 % (11.6-14.8) Platelet Count 293 K/UL (150-450) Mean Platelet Volume 7.9 FL (6.5-10.1) Neutrophils (%) (Auto) 65.3 % (45.0-75.0) Lymphocytes (%) (Auto) 23.5 % (20.0-45.0) Monocytes (%) (Auto) 8.9 % (1.0-10.0) Eosinophils (%) (Auto) 1.6 % (0.0-3.0) Basophils (%) (Auto) 0.8 % (0.0-2.0) Sodium Level 140 MMOL/L (136-145) Potassium Level 4.2 MMOL/L (3.5-5.1) Chloride Level 105 MMOL/L (98-107) Carbon Dioxide Level 27 MMOL/L (21-32) Anion Gap 9 mmol/L (5-15) Blood Urea Nitrogen 11 mg/dL (7-18) Creatinine 1.1 MG/DL (0.55-1.30) Estimat Glomerular Filtration Rate > 60 mL/min (>60) Glucose Level 145 MG/DL (74-106) H Calcium Level 8.6 MG/DL (8.5-10.1) Current Medications Medications (Trade) Dose Ordered Sig/Wil Route PRN Reason Start Time Stop Time Status Last Admin Dose Admin Acetaminophen/ Hydrocodone Bitart ([place] 5/325) 1 tab Q4H PRN ORAL Moderate Pain (Pain Scale 4-6) 10/23/18 22:00 10/30/18 21:59 10/24/18 02:48 Aspirin (ASA) 81 mg DAILY ORAL 10/24/18 09:00 11/23/18 08:59 10/24/18 08:24 Metformin HCl (Glucophage) 500 mg TWICE A DAY ORAL 10/24/18 09:00 11/23/18 08:59 10/24/18 08:22 Pantoprazole (Protonix) 40 mg ACBREAKFAST ORAL 10/24/18 06:30 11/23/18 06:29 10/24/18 06:10 Piperacillin Sod/ Tazobactam Sod 3.375 gm/Sodium Chloride 110 ml @ 27.5 mls/hr Q8HR IVPB 10/23/18 23:00 10/30/18 22:59 10/24/18 06:09 Vancomycin HCl (Vanco rx to dose) 1 ea DAILY PRN MISC Per rx protocol 10/23/18 21:30 11/22/18 21:29 Vancomycin HCl 1 gm/Dextrose 275 ml @ 183.708 mls/hr Q12H IVPB 10/24/18 00:00 10/29/18 00:00 10/23/18 23:18 Zolpidem Tartrate (Ambien) 10 mg BEDTIME PRN ORAL Insomnia 10/23/18 22:00 10/30/18 21:59 10/24/18 02:48 Maddie Rosado MD Oct 24, 2018 12:44
--- NOTE | 2018-10-24 14:20 | NUR ---
CASE MANAGEMENT: REVIEW 39/F PRESENTED TO ED FROM HOME CC: RIGHT FOOT SWELLING SI: SEPTIC JOINT T 98.4 HR 67 RR 18 BP 148/86 SAT 95% ROOM AIR WBC 14.7 IS: BACTRIM-DS PO X1 [place] 5/325MG PO X1 PEPCID IV X1 TORADOL 30MG IV X1 VANCO IC X1 ZOSYN IV X1 INTERQUAL CRITERIA MET: PATIENT ADMITTED TO MED/SURG UNIT 10/23/2018 DCP: PATIENT IS FROM HOME
--- NOTE | 2018-10-24 14:37 | NUR ---
NURSE NOTES: Called Dr. Fregoso to notify of lactic acid level 3.3, no answer. Left VM to return call to clinic along with hospital phone number. Pt currently asymptomatic, running vanco and Zosyn as ordered. Will continue to monitor Addendum: 10/24/18 at 1444 by Barbie Clay RN [id number] Dr. Fregoso returned call, informed of 3.3 lactic acid level. Per MD noted, pt is currently on antibiotics, no new orders given. Will flu on Blood Cx and lactic acid reflex.
[2018-10-24 15:50] VITALS: BP 152/89
--- NOTE | 2018-10-24 16:30 | Diagnostic Imaging Report ---
EXAM: XR Chest, 1 View CLINICAL HISTORY: INFECT TECHNIQUE: Frontal view of the chest. COMPARISON: No relevant prior studies available. FINDINGS: Lungs: No confluent consolidation. Pleural space: Unremarkable. No pneumothorax. Heart: Unremarkable. No cardiomegaly. Mediastinum: Unremarkable. Bones/joints: No acute fracture. IMPRESSION: No confluent consolidation.
--- NOTE | 2018-10-24 17:30 | Consultation ---
DATE OF CONSULTATION: 10/24/2018 INFECTIOUS DISEASE CONSULTATION CONSULTING PHYSICIAN: Maddie Rosado M.D. ATTENDING PHYSICIAN: Jelani Miranda M.D. REFERRING PHYSICIAN: Pranay Menjivar M.D. REASON FOR CONSULTATION: Possible septic arthritis of the right ankle, also possible sepsis, elevated white count, SIRS criteria positive, leukocytosis. CHIEF COMPLAINT: The patient's chief complaint coming in to the hospital was severe right ankle pain. HISTORY OF PRESENT ILLNESS: This is a 58-year-old male, who has history of diabetes, who stated he had fall and possible trauma to the right ankle, foot, and left knee. The patient comes in to the [facility] with severe right ankle pain. He stated he noticed swelling in that area also and including the foot to mild degree. The patient was admitted to [facility] with right ankle pain and also possibly right ankle septic arthritis. The patient has mild warmth and swelling to the right ankle area at this time. The patient was seen by Orthopedic Surgery and consult was reviewed. They did not feel the patient has septic arthritis of the right ankle. The patient has persistent elevated white count and also SIRS criteria positive. There was concern the patient could be septic, also white count on admission was 14.7. Discussed with the patient. He states he had been told he recently had an elevated white count by the [place] physicians where he goes to. It is unclear if the patient had cold, however, he has no fevers. Infectious Disease consultation was requested for further management. He is currently on vancomycin and Zosyn. REVIEW OF SYSTEMS: CONSTITUTIONAL: He has no significant fatigue. No weakness. No chills. No night sweats, fever, or weight loss. HEAD AND NECK: No head pain. No neck pain. No neck stiffness. CARDIAC: No chest pain. GASTROINTESTINAL: No nausea, vomiting, abdominal pain, or diarrhea. GENITOURINARY: No CVA tenderness. No Mcclelland. No dysuria or frequency. PULMONARY: No congestion or shortness of breath. Mild secretions. No chest pain. SKIN: No rash. EXTREMITIES: He has left knee, right ankle, and right foot pain, most prominently right ankle with swelling. NEUROLOGIC: No seizures. No night sweats, fevers, or weight loss. PAST MEDICAL HISTORY: Includes history of following. The patient has past medical history of diabetes. He has history of lymphoma, this was documented in 2001 per the records. He has history of GERD. He has no history of hypertension, however, he stated his blood pressure has been on the high side and it is also high here at [facility], so it is unclear if he has history of hypertension. He does have history of diabetes, history of lymphoma, and history of GERD. ALLERGIES: Ibuprofen. No antibiotic allergies. SOCIAL HISTORY: Positive for smoking. No alcohol or drug abuse. FAMILY HISTORY: Noncontributory. MEDICATIONS: Upon reviewing the MAR, he is on the following medications. He is on aspirin, metformin, pantoprazole, vancomycin, Zosyn, hydrocodone, and zolpidem. Outside medications noted and reconciliated. PHYSICAL EXAMINATION: VITAL SIGNS: Temperature is 98.6, pulse rate 70, respiratory rate 18, blood pressure 141/90, saturation 99%. Respiratory rate has been as high as 21. GENERAL: Alert, in no acute distress, nonseptic looking. HEAD AND NECK: Oral exam, no thrush. Eye exam, no icterus. No JVD. Normocephalic. No icterus, no thrush. Neck is supple. HEART: Regular. No gallop or murmur. No friction rub. ABDOMEN: Soft. Positive bowel sounds. Nontender. LUNGS: Fairly clear bilaterally. No obvious rhonchi or rales. Maybe occasional rhonchi. SKIN: No rash. EXTREMITIES: Legs are without cellulitis. PERIPHERAL VASCULAR: No gangrene. MUSCULOSKELETAL: He has no evidence of left ankle swelling or pain and he has good range of motion. He has no evidence of cellulitis of the right lower extremity such as the right leg and foot, however, the right ankle, he does have some mild redness, swelling, and warmth, however, his range of motion is very good. There is no evidence of septic ankle. NEUROLOGIC: Intact. LINE SITES: Without phlebitis. GENITOURINARY: No Mcclelland. No CVA tenderness. LABORATORY DATA: As follows. White count 13.5, hemoglobin 14.1. Creatinine is 1.1. LFTs were noted. White count on admission was 14.7. Sedimentation rate is 6. Uric acid level is 4.6. C-reactive protein is 1.0. I have ordered blood cultures and uric acid level. UA was 0-2 white cells only. IMAGING: X-ray of the left ankle shows no evidence of fracture, no acute process. I have ordered blood cultures, lactic acid, and chest x-ray. ASSESSMENT AND PLAN: 1. The patient has leukocytosis, questionable sepsis. He does have leukocytosis with white count of 12 and also has SIRS criteria. Respiratory rate has been as high as 21. The patient has right ankle pain and swelling, but the range of motion is very good and certainly it does not seem to be consistent with septic arthritis. It is unclear if this is related to a recent fall and trauma he stated about a week ago, but at this point, there is no indication for aspiration of the joint. He was seen by Orthopedic Surgery and felt that the patient does not have a septic joint of the right ankle. He does not have a septic joint or septic arthritis. It is unclear if the right ankle swelling is reactive to the fall or this may be some mild underlying cellulitis with mild redness and warmth. Leukocytosis certainly also could be reactive, however, the fall was over week ago. It looks like he has no significant leukocytosis currently related to that. At this time, continue empiric antibiotics of vancomycin and Zosyn for the possibility of sepsis. Check blood cultures, chest x-ray, and laboratories. If the cultures are negative, maybe consider transition to oral antibiotics such as Bactrim and Keflex for around five days to treat possibility of right ankle cellulitis. I do not think the patient needs a long treatment course because again it is unlikely he has a septic arthritis of the right ankle. Monitor laboratories. Monitor leukocytosis with CBC and watch creatinine closely on antibiotics. I shall follow up on the blood cultures and chest x-ray. Also, we will follow up on lactic acid level. 2. Diabetes. Blood sugar treatment per primary. 3. Pain management, per primary. 4. History of lymphoma in 2001, documented in history. 5. GERD. 6. No history of hypertension, however, blood pressure is elevated. Treatment per primary. 7. Continue treatment per Dr. Menjivar and consultants. 8. Allergy to ibuprofen. 9. Social history positive for smoking. 10. Family history noncontributory. 11. MAR was noted. 12. Case discussed with RN. 13. Continue treatment per primary consultants. 14. Case was discussed with the patient and his . 15. Notes and records were noted. Orders were entered. Thank you for this consult. We will follow. Maddie Rosado M.D. DR: GIANNA JOB#: [id number] CC:
--- NOTE | 2018-10-24 17:43 | NUR ---
The pt leaves the room to go out to smoke, Dr. Menjivar and charge nurse aware. The pt refuses nicotine patches. Pt educated of hospital policies, pt does not follow non smoking policy. Pt has abx around the clock which have to be stopped every time pt leaves the unit. Pt educated that effect of medication may be altered due to prolonged times of intermittent dose administration. Pt verbalized understanding but states " I have to smoke, I need it." Pt left unit at 0845, 1020, and 1745. Abx had to be stopped every time the pt left. Will continue to monitor and educate.
--- NOTE | 2018-10-24 19:00 | NUR ---
NURSE NOTES: Received a report from MAKI Valentin. Pt is in stable condition. AAOX4. Able to make needs known. Family members at the bedside. No respiratory distress noted. On room air. No c/o pain/discomfort. IV site is patent and intact. Bed in lowest position. Call light within reach. Will continue to monitor.
--- NOTE | 2018-10-24 19:25 | NUR ---
HAND-OFF: Report given to MAKI Harding. Pt left in room with family at bedside, pt in no acute distress. Bed in low position, skid socks on, call light within reach.
[2018-10-24 20:00] VITALS: BP 153/83
[2018-10-25] VITALS: BP 158/98
[2018-10-25] MEDS: HYDROcodone/Acetamin 5/325 tab ORAL PRN (00:55)
[2018-10-25] MEDS: Zolpidem 5mg tab ORAL PRN (00:56)
[2018-10-25 04:00] VITALS: BP 152/99
[2018-10-25] MEDS: Piperacillin/Tazobactam 3.375 GM in NS 110 ML IVPB SCH (05:55)
--- NOTE | 2018-10-25 07:00 | NUR ---
HAND-OFF: Report given to Armaan Booth RN.
[2018-10-25 07:21] LABS: BASOPHILS % (AUTO) 0.7 % (0.0-2.0); EOSINOPHILS % (AUTO) 1.4 % (0.0-3.0); HEMATOCRIT 42.6 % (42.0-52.0); HEMOGLOBIN 14.1 G/DL (14.2-18.0); LYMPHOCYTES % (AUTO) 26.7 % (20.0-45.0); MEAN CORPUSCULAR VOLUME 89 FL (80-99); MONOCYTES % (AUTO) 8.9 % (1.0-10.0); NEUTROPHILS % (AUTO) 62.4 % (45.0-75.0); PLATELET COUNT 313 K/UL (150-450); RED BLOOD COUNT 4.79 M/UL (4.70-6.10); RED CELL DISTRIBUTION WIDTH 12.6 % (11.6-14.8); WHITE BLOOD COUNT 11.9 K/UL (4.8-10.8)
[2018-10-25 07:32] LABS: ANION GAP 9 mmol/L (5-15); BLOOD UREA NITROGEN 13 mg/dL (7-18); CALCIUM 9.1 MG/DL (8.5-10.1); CARBON DIOXIDE 27 MMOL/L (21-32); CHLORIDE 104 MMOL/L (98-107); CREATININE 1.1 MG/DL (0.55-1.30); POTASSIUM 4.1 MMOL/L (3.5-5.1); SODIUM 140 MMOL/L (136-145)
[2018-10-25 08:00] VITALS: BP 156/96
[2018-10-25] MEDS: Aspirin Baby 81mg ORAL SCH (08:19)
[2018-10-25] MEDS: metFORMIN 500mg tab ORAL SCH (08:19)
[2018-10-25] MEDS ORDERED: Vancomycin 1.5gm/D5W Premix 250 ML IVPB SCH ×2 (09:00)
[2018-10-25] MEDS ORDERED: CEPHALEXIN500 MG ORAL (09:01)
[2018-10-25] MEDS ORDERED: BACTRIM DS TAB1 EAC1 ORAL (09:01)
[2018-10-25] MEDS ORDERED: NORCO 5-325 TA1 EACH ORAL (09:05)
--- NOTE | 2018-10-25 09:09 | Discharge Summary ---
Discharge Summary Hospital Course Date of Admission Oct 23, 2018 at 15:35 Date of Discharge 10/25/18 Admitting Diagnosis SEPTIC JOINT HPI Herber Mann Sr is a 58 year old male who was admitted on Oct 23, 2018 at 15:35 for right ankle pain 58 yo male with h/o arthritis presents with severe right ankle pain. States pain started 2-3 days ago, becoming worse, with redness and swelling. xr ankle completed, no frx noted. Ortho evaluated, this is not septic joint, pain likely from trauma, no indication for aspiration. Pain has improved. wbc has improved, likely reactive cause for elevated wbc. states he hurt his ankle, stated he fell on accident and his ankle hurt since then. ID consulted and evaluated as well patient to be dc home today with po abx bactrim/keflex per ID recs however unlikely infectious source, may have mild cellulitis patient able to walk without difficulty uric acid wnl dc home Physical Exam General appearance: alert, cooperative, no distress, appears stated age Head: Normocephalic, without obvious abnormality, atraumatic Eyes: conjunctivae/corneas clear. PERRL, EOM's intact. Fundi benign Throat: Lips, mucosa, and tongue normal. Teeth and gums normal Neck: supple, symmetrical, trachea midline, no adenopathy, thyroid: not enlarged, symmetric, no tenderness/mass/nodules, no carotid bruit and no JVD Lungs: clear to auscultation bilaterally Heart: regular rate and rhythm, S1, S2 normal, no murmur, click, rub or gallop Abdomen: soft, non-tender. Bowel sounds normal. No masses, no organomegaly Extremities: right ankle mild ttp with erythema, no abrasions Pulses: 2+ and symmetric Skin: erythema around right ankle Neurologic: Grossly normal Hospital Course Right Ankle Pain sepsis cellulitis - dc with po bactrim/keflex - pain control - ortho consulted - uric acid wnl - ID consult Arthritis - pain control - uric acid ppx: scd diet: regular Code Status: Full Disposition:home I spent over 45minutes on this patient's case,counseling and/or care coordination and discharge/dispo planning. Discussed with patient/family, nursing staff, SW/CM, and consultants regarding clinical status, treatment course, and disposition planning. Time of note may not reflect time of encounter. Discharge Medications New Medications: Cephalexin* (Keflex*) 500 Mg Capsule 500 MG ORAL EVERY 6 HOURS for 5 Days, #20 CAP Trimethoprim/Sulfamethoxazole 160/800* (Bactrim Ds Tablet*) 1 Each Tablet 1 TAB ORAL Q12H for 5 Days, #14 TAB 0 Refills Continued Medications: Hydrocodone Bit/Acetaminophen 5-325* (Champion 5-325*) 1 Each Tablet 1 TAB ORAL Q8HR PRN for For Pain, #10 TAB 0 Refills (This prescription has been renewed) Discharge Condition Upon Discharge: stable Discharge Disposition Patient was discharged to home Discharge Diagnoses: (1) High ankle sprain of right lower extremity Pranay Menjivar MD Oct 25, 2018 09:09
--- NOTE | 2018-10-25 09:31 | NUR ---
NURSE NOTES: DR KARIMI WITH DISCHARGE ORDER HOME. RN MADE AND PT AWARE AND BOTH AGREE WITH DISCHARGE. RN EDUCATED PT ON DISCHARGE MEDICATIONS AND PACKET. PT VERBALIZED UNDERSTANDING. ALL BELONGINGS CHECKED AT BEDSIDE, ALL ACCOUNTED. PT'S CALLING [facility]BER FOR RIDE HOME. IV ACCESSES DISCONTINUED.
--- NOTE | 2018-10-25 09:45 | NUR ---
NURSE NOTES: PT WAS DISCHARGED WITH IN STABLE CONDITION.
--- NOTE | 2018-11-08 15:53 | NUR ---
CASE MANAGEMENT: CM review and clinical information (face sheet/ DC summary/ ER MD Note/ H&P) faxed to [facility] @ [phone]
== END 2018-10-25 09:46 | disposition home or self-care (01) | DRG 872 ==
LOC: EMR 11:38 → 3E 15:35 → EDBEDREQ 16:59
DX: A41.9 Sepsis, unspecified organism (principal); L03.115 Cellulitis of right lower limb; M19.071 Primary osteoarthritis, right ankle and foot; S93.401A Sprain of unspecified ligament of right ankle, initial encounter; X58.XXXA Exposure to other specified factors, initial encounter; E11.9 Type 2 diabetes mellitus without complications; Z85.72 Personal history of non-Hodgkin lymphomas; Z88.6 Allergy status to analgesic agent; K21.9 Gastro-esophageal reflux disease without esophagitis
CPT/HCPCS: 36415; 71045; 80048; 80053; 80202; 80307; 81003; 83605; 84550; 85025; 85651; 86140; 87040; 96365; 96368; 96375; 99285